=== PATIENT | female | born 2000 ===

== ENCOUNTER 2019-08-24 09:19 | Emergency (ER) | payer SELFPAY ==
[2019-08-24] MEDS ORDERED: HYDROcodone/ACETAMINOPHEN 5-325 MG TAB PO ONE (09:43)
[2019-08-24] MEDS ORDERED: AMOXICILLIN/K CLAV 500/125MG TAB PO ONE (09:43)
[2019-08-24] MEDS ORDERED: DIPHtheria,PERTUSSIS(ACELL),TETANUS VACCINE/PF 0.5 ML VIAL IM ONE (09:43)
--- NOTE | 2019-08-24 09:49 | Emergency Department Report ---
ED Animal Bite HPI - General Chief Complaint: Animal Bite Stated Complaint: DOG BITE Time Seen by Provider: 08/24/19 09:42 Source: patient Mode of arrival: Ambulatory Limitations: No Limitations - History of Present Illness Initial Comments: 19-year-old female presents to the emergency room for dog bite to the left hip and right leg by [id number] dog. Patient reports she is not sure when she has had her last tetanus. It was reported that her [id number] states that the dog has all of his vaccines. Patient denies any past medical h istory has no known drug allergies he currently takes no medications. Last menstrual period was 08/10/2019 no possibility of being per patient. Complaint: animal bite Onset/Timin -: minutes(s) Left: Thigh, Right: Thigh Animal: dog Description: household pet, immunizations UTD Mechanism: bite, scratch Severity scale (0 -10): 10 Context: playing with animal - Related Data Patient Tetanus UTD: No Previous Rx's Medication Instructions Recorded Last Taken Type Acetaminophen/Codeine [Tylenol 1 tab PO Q6H PRN #12 tab 08/24/19 Unknown Rx /Codeine # 3 tab] Amoxicillin/K Clav Tab [Augmentin 1 each PO Q8HR 10 Days #30 tablet 08/24/19 Unknown Rx 500 MG TAB] Ibuprofen [Motrin 600 MG tab] 600 mg PO Q8H PRN #30 tablet 08/24/19 Unknown Rx Allergies Allergy/AdvReac Type Severity Reaction Status Date / Time No Known Allergies Allergy Unverified 08/24/19 09:27 ED Review of Systems ROS: Stated complaint: DOG BITE Other details as noted in HPI ED Past Medical Hx - Past Medical History Previous Medical History?: No - Surgical History Past Surgical History?: No - Social History Smoking Status: Never Smoker Substance Use Type: None - Medications Home Medications: Home Medications Medication Instructions Recorded Confirmed Last Taken Type Acetaminophen/Codeine [Tylenol 1 tab PO Q6H PRN #12 tab 08/24/19 Unknown Rx /Codeine # 3 tab] Amoxicillin/K Clav Tab [Augmentin 1 each PO Q8HR 10 Days #30 tablet 08/24/19 Unknown Rx 500 MG TAB] Ibuprofen [Motrin 600 MG tab] 600 mg PO Q8H PRN #30 tablet 08/24/19 Unknown Rx ED Physical Exam - General Limitations: No Limitations General appearance: alert, in no apparent distress - Head Head exam: Present: atraumatic, normocephalic - Eye Eye exam: Present: normal appearance - ENT ENT exam: Present: mucous membranes moist - Neck Neck exam: Present: normal inspection, full ROM - Respiratory Respiratory exam: Present: normal lung sounds bilaterally. Absent: respiratory distress - Cardiovascular Cardiovascular Exam: Present: regular rate, normal rhythm. Absent: systolic murmur, diastolic murmur, rubs, gallop - GI/Abdominal GI/Abdominal exam: Present: soft. Absent: distended, tenderness - Extremities Exam Extremities exam: Present: normal inspection - Back Exam Back exam: Present: normal inspection - Neurological Exam Neurological exam: Present: alert, oriented X3, normal gait - Psychiatric Psychiatric exam: Present: normal affect, normal mood - Skin Skin exam: Present: warm, dry, intact, normal color. Absent: rash - Expanded Skin Exam Expanded Type of lesion: Present: bite/sting Distribution of rash: RLE, LLE Description of rash: Present: tenderness, erythematous, swelling, indurated ED Course Vital Signs 08/24/19 08/24/19 09:28 10:02 Temperature 98.4 F Pulse Rate 100 H Respiratory 20 18 Rate Blood Pressure 134/80 O2 Sat by Pulse 100 Oximetry Critical care attestation.: If time is entered above; I have spent that time in minutes in the direct care of this critically ill patient, excluding procedure time. ED Disposition Clinical Impression: Open wound of right thigh due to dog bite, Open wound of left thigh due to dog bite Disposition: DC-01 TO HOME OR SELFCARE Is pt being admited?: No Does the pt Need Aspirin: No Condition: Stable Additional Instructions: Complete antibiotics as prescribed. Take pain medication as needed. Do not operate heavy machinery while taking Tylenol 3. Please increase your water intake. Follow-up with your primary care provider. Prescriptions: Amoxicillin/K Clav Tab [Augmentin 500 MG TAB] 1 each PO Q8HR 10 Days #30 tablet Ibuprofen [Motrin 600 MG tab] 600 mg PO Q8H PRN #30 tablet PRN Reason: Pain Acetaminophen/Codeine [Tylenol /Codeine # 3 tab] 1 tab PO Q6H PRN #12 tab PRN Reason: Pain , Severe (7-10) Referrals: VALERIE HERNANDEZ MD [Staff Physician] - 3-5 Days [facility] [Provider Group] - 3-5 Days Forms: Work/School Release Form(ED)
== END 2019-08-24 11:04 | disposition home or self-care (01) ==
LOC: ED 09:19
DX: S71.151A Open bite, right thigh, initial encounter (principal); S71.152A Open bite, left thigh, initial encounter; W54.0XXA Bitten by dog, initial encounter; Y93.89 Activity, other specified; Y92.89 Other specified places as the place of occurrence of the external cause; Y99.8 Other external cause status; Z79.899 Other long term (current) drug therapy
CPT/HCPCS: 90471; 90715; 99282